=== PATIENT | male | born 1945 | race Caucasian/White ===

== ENCOUNTER 2016-12-08 17:57 | Emergency (ER) | payer MEDICARE, OTHER ==
--- NOTE | 2016-12-08 18:22 | Diagnostic Imaging Report ---
[facility] [address] [facility].[address] [id number] Report Submission Date: Dec 08, 2016 6:20:41 PM CDT Patient Study Name: BRYANNA PULIDO Date: Dec 08, 2016 6:05:33 PM CDT Modality Type: CR Gender: M Description: CHEST : 47 Institution: [facility] Physician: JAVIER LEY - ER Chest, 1 view History: SHORTNESS OF BREATH, POSSIBLE ASPIRATION. PT WAS UNABLE TO FOLLOW BREATHING INSTRUCTIONS Findings: Comparison is made to exam dated 09/02/2015. The heart size is normal. The lungs are hypoinflated with mild right basilar atelectasis, unchanged. There is no pleural effusion or pneumothorax identified. The osseous structures are normal. Impression: 1. Lung hypoinflation with mild right basilar atelectasis. Electronically signed on Dec 08, 2016 6:20:41 PM CDT by: Jose CRUZ
[2016-12-08 18:30] LABS: BASOPHILS % 0.2 (0.0-1.5); EOSINOPHILS % 2.6 % (0.0-6.8); MEAN CORPUSCULAR HEMOGLOBIN 33.6 pg (28.0-34.0); MEAN CORPUSCULAR VOLUME 101.7 fl (80.0-100.0); MONOCYTES % 3.6 % (0.0-11.0); NEUTROPHILS # 7.1 # k/uL (1.4-7.7)
[2016-12-08] MEDS ORDERED: 0.9 % SODIUM CHLORIDE 1,000 ML IV ONE (20:04)
[2016-12-08 20:07] LABS: eGFR (African) > 60; eGFR (Non-African) > 60
[2016-12-08] MEDS ORDERED: IPRATROPIUM/ALBUTEROL SULFATE 3 ML AMPUL.NEB NEB ONE (20:07)
[2016-12-08] MEDS ORDERED: DEXTROSE 50% 50 ML DISP.SYRIN IVP ONE (20:10)
[2016-12-08] MEDS ORDERED: PIPERACILLIN SODIUM/TAZOBACTAM 3.375 GM VIAL IV ONE (20:16)
[2016-12-08] MEDS ORDERED: 0.9 % SODIUM CHLORIDE 100 ML IV ONE (20:17)
[2016-12-08] MEDS: PIPERACILLIN SODIUM/TAZOBACTAM 3.375 GM in 0.9 % SODIUM CHLORIDE 50 ML IV SCH (20:31)
[2016-12-08] MEDS: DEXTROSE 50% 50 ML DISP.SYRIN IVP PRN (20:33)
[2016-12-08] MEDS: 0.9 % SODIUM CHLORIDE 1,000 ML IV SCH (20:33)
--- NOTE | 2016-12-08 20:37 | ED Physician Documentation ---
General Adult - HISTORIAN Historian: paramedics - HPI Stated Complaint: fever, sob, ? aspiration Chief Complaint: General Adult Onset: hours Timing: still present Severity: moderate Further Comments: yes (Pt is a 71 yo male half-way resident with fever and sob, suspected of having aspirated. Temp on presentation 102.5.) - ROS CONST: other (Pt unable to give ROS.) - PAST HX Past History: hypertension, other (Alzheimer's, OA; seizure; GERD; Brain Injury. ) Allergies/Adverse Reactions: Allergies Allergy/AdvReac Type Severity Reaction Status Date / Time chocolate flavor Allergy Verified 12/08/16 18:17 onion Allergy Verified 12/08/16 18:17 Tetanus Vaccines & Toxoid Allergy Verified 12/08/16 18:17 [Tetanus] Home Medications: Ambulatory Orders Medication Instructions Recorded Acetaminophen [Tylenol] 650 mg PO BID 06/21/15 Aspirin [Estrella] 81 mg PO DAILY 06/21/15 Atenolol [Tenormin] 12.5 mg PO DAILY 06/21/15 Mag Hydrox/Al Hydrox/Simeth 30 ml PO D PRN 06/21/15 [Mylanta] Magnesium Hydroxide [Milk of 2,400 mg PO D PRN 06/21/15 Magnesia] Multivitamin [Tab-A-Addison] 1 each PO DAILY 06/21/15 Rivastigmine 4.6MG/24Hr [Exelon 1 each TD QD 06/21/15 0.192 MG/HR] Thiamine HCl [Vitamin B-1] 100 mg PO D 06/21/15 Bisacodyl [Dulcolax] 5 mg PO TID 12/08/16 Docusate Sodium [Colace] 100 mg PO TID 12/08/16 Magnesium Citrate 296 ml PO Q3D PRN 12/08/16 Megestrol Acetate [Megace] 10 ml PO TID 12/08/16 Olanzapine [Zyprexa] 7.5 mg PO HS 12/08/16 - SOCIAL HX Smoking History: non-smoker Alcohol Use: none Drug Use: none - FAMILY HX Family History: No - VITAL SIGNS Vital Signs: Vital Signs Temp Pulse Resp BP Pulse Ox 141/70 09/04/15 08:45 - REVIEWED ASSESSMENTS Nursing Assessment Reviewed: Yes Vitals Reviewed: Yes Progress - Progress Progress: Duoneb 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 Dr. Barkley. - EKG/XRAY/CT EKG: rhythm (sinus tachycardia; normal MO interval; normal axis.) XRAY: chest ( Lung hypoinflation with mild right basilar atelectasis.) ED Results Lab/Radiology - Orders Orders: ED Orders Category Date Time Status Continuous EKG monitoring Q30M Care 12/08/16 17:59 Ordered Continuous Pulse Oximetry Q30M Care 12/08/16 17:59 Ordered CHEST 1 VIEW [RAD] Stat Exams 12/08/16 17:59 Ordered BLOOD CULTURE Stat Lab 12/08/16 Ordered CBC/PLATELET/DIFF Routine Lab 12/08/16 17:59 Ordered CKMB Stat Lab 12/08/16 Ordered CMP Routine Lab 12/08/16 17:59 Ordered CREATINE KINASE Routine Lab 12/08/16 17:59 Ordered TROPONIN I (cTnI) Stat Lab 12/08/16 17:59 Ordered Oxygen Daily Oxygen 12/08/16 18:00 Ordered EKG WITH COMPARISON Stat Ther 12/08/16 17:59 Ordered General Adult Physical Exam - PHYSICAL EXAM GENERAL APPEARANCE: moderate distress EENT: dry mucous membranes NECK: normal inspection, supple RESPIRATORY: wheezes, rales, rhonchi, other (coarse breath sounds R>L, c/w aspiration) CVS: tachycardia ABDOMEN: soft, non-tender, decreased BS BACK: normal inspection SKIN: warm/dry, pallor EXTREMITIES: other (contractures of upper extremities) NEURO: other (Alzheimer's dz) Discharge Clincal Impression: Fever, Probable Aspiration Pneumonia Referrals: Guevara Pleitez MD [Primary Care Provider] - Home Medications: Ambulatory Orders Acetaminophen [Tylenol] 650 mg PO BID 06/21/15 Aspirin [Estrella] 81 mg PO DAILY 06/21/15 Atenolol [Tenormin] 12.5 mg PO DAILY 06/21/15 Mag Hydrox/Al Hydrox/Simeth [Mylanta] 30 ml PO D PRN 06/21/15 Magnesium Hydroxide [Milk of Magnesia] 2,400 mg PO D PRN 06/21/15 Multivitamin [Tab-A-Addison] 1 each PO DAILY 06/21/15 Rivastigmine 4.6MG/24Hr [Exelon 0.192 MG/HR] 1 each TD QD 06/21/15 Thiamine HCl [Vitamin B-1] 100 mg PO D 06/21/15 Bisacodyl [Dulcolax] 5 mg PO TID 12/08/16 Docusate Sodium [Colace] 100 mg PO TID 12/08/16 Magnesium Citrate 296 ml PO Q3D PRN 12/08/16 Megestrol Acetate [Megace] 10 ml PO TID 12/08/16 Olanzapine [Zyprexa] 7.5 mg PO HS 12/08/16 Condition: Fair Disposition: 02 XFER SHT-TRM HOSP Decision to Admit: NO Decision Time: 20:29
[2016-12-08] MEDS ORDERED: LORazepam 2 MG/ML VIAL ONE (20:54)
[2016-12-08] MEDS: LORazepam 2 MG/ML VIAL IVP ONE (21:00)
[2016-12-08 21:15] VITALS: BP 125/73
== END 2016-12-08 21:15 | disposition short-term general hospital (02) ==
LOC: ED 17:57
DX: J69.0 Pneumonitis due to inhalation of food and vomit (principal); R50.9 Fever, unspecified
CPT/HCPCS: 71010; 80053; 82550; 82553; 83880; 84484; 85025; 87040; 93005; J2060; J2543; J7030; 96361; 96365; 96375; 99284